=== PATIENT | male | born 1985 | race Caucasian/White ===

== ENCOUNTER 2024-11-07 19:57 | Emergency (ER) | payer BC ==
[2024-11-07] MEDS: Diphtheria,Pertussis(Acell),Tetanus Vaccine 0.5 ML Syringe IM ONE (20:37)
== END 2024-11-07 22:12 | disposition home or self-care (01) ==
LOC: MW.ED 19:57
DX: S02.5XXA Fracture of tooth (traumatic), initial encounter for closed fracture (principal); S01.511A Laceration without foreign body of lip, initial encounter; Z23 Encounter for immunization; W26.8XXA Contact with other sharp object(s), not elsewhere classified, initial encounter; Y93.89 Activity, other specified
CPT/HCPCS: 12013; 70486; 70486-26; 90471; 90715; 99283; 99283-25